=== PATIENT | female | born 1960 | race Native Hawaiian/Other Pacific Islander ===

== ENCOUNTER 2020-11-20 08:32 | Outpatient (CLI) | payer OTHER ==
[~2020-11-20] VITALS: Ht 157.5 cm; Wt 86.2 kg
== END 2020-11-20 22:00 | disposition home or self-care (01) ==
LOC: DIABINF 08:32
PROVIDERS: ATTEND Internal Medicine Endocrinology, Diabetes & Metabolism
DX: E11.65 Type 2 diabetes mellitus with hyperglycemia (principal); E66.01 Morbid (severe) obesity due to excess calories; Z68.34 Body mass index [BMI] 34.0-34.9, adult; K21.9 Gastro-esophageal reflux disease without esophagitis; I10 Essential (primary) hypertension; E78.2 Mixed hyperlipidemia; J30.2 Other seasonal allergic rhinitis; E11.40 Type 2 diabetes mellitus with diabetic neuropathy, unspecified
CPT/HCPCS: 82948; 96365; 96366; 96521; J1815; J1817

== ENCOUNTER 2020-11-21 11:51 | Outpatient (CLI) | payer OTHER ==
[~2020-11-21] VITALS: Ht 157.5 cm; Wt 86.2 kg
== END 2020-11-21 22:59 | disposition home or self-care (01) ==
LOC: DIABINF 11:51
PROVIDERS: ATTEND Internal Medicine Endocrinology, Diabetes & Metabolism
DX: E11.65 Type 2 diabetes mellitus with hyperglycemia (principal); E66.01 Morbid (severe) obesity due to excess calories; Z68.34 Body mass index [BMI] 34.0-34.9, adult; K21.9 Gastro-esophageal reflux disease without esophagitis; I10 Essential (primary) hypertension; E78.2 Mixed hyperlipidemia; J30.2 Other seasonal allergic rhinitis; E11.40 Type 2 diabetes mellitus with diabetic neuropathy, unspecified
CPT/HCPCS: 82948; 96365; 96366; 96521; J1815; J1817

== ENCOUNTER 2020-11-27 08:26 | Outpatient (CLI) | payer OTHER ==
[~2020-11-27] VITALS: Ht 157.5 cm; Wt 86.2 kg
== END 2020-11-27 22:43 | disposition home or self-care (01) ==
LOC: DIABINF 08:26
PROVIDERS: ATTEND Internal Medicine Endocrinology, Diabetes & Metabolism
DX: E11.65 Type 2 diabetes mellitus with hyperglycemia (principal); E66.01 Morbid (severe) obesity due to excess calories; Z68.34 Body mass index [BMI] 34.0-34.9, adult; K21.9 Gastro-esophageal reflux disease without esophagitis; I10 Essential (primary) hypertension; E78.2 Mixed hyperlipidemia; J30.2 Other seasonal allergic rhinitis; E11.40 Type 2 diabetes mellitus with diabetic neuropathy, unspecified
CPT/HCPCS: 82948; 96365; 96366; 96521; J1815; J1817

== ENCOUNTER 2020-11-28 13:22 | Outpatient (CLI) | payer OTHER ==
[~2020-11-28] VITALS: Ht 157.5 cm; Wt 86.2 kg
== END 2020-11-28 20:11 | disposition home or self-care (01) ==
LOC: DIABINF 13:22
PROVIDERS: ATTEND Internal Medicine Endocrinology, Diabetes & Metabolism
DX: E11.65 Type 2 diabetes mellitus with hyperglycemia (principal); E66.01 Morbid (severe) obesity due to excess calories; Z68.34 Body mass index [BMI] 34.0-34.9, adult; K21.9 Gastro-esophageal reflux disease without esophagitis; I10 Essential (primary) hypertension; E78.2 Mixed hyperlipidemia; J30.2 Other seasonal allergic rhinitis; E11.40 Type 2 diabetes mellitus with diabetic neuropathy, unspecified
CPT/HCPCS: 82948; 96365; 96366; 96521; J1815; J1817

== ENCOUNTER 2020-12-04 13:03 | Outpatient (CLI) | payer OTHER ==
[~2020-12-04] VITALS: Ht 157.5 cm; Wt 85.7 kg
== END 2020-12-04 22:49 | disposition home or self-care (01) ==
LOC: DIABINF 13:03
PROVIDERS: ATTEND Internal Medicine Endocrinology, Diabetes & Metabolism
DX: E11.65 Type 2 diabetes mellitus with hyperglycemia (principal); E66.01 Morbid (severe) obesity due to excess calories; Z68.34 Body mass index [BMI] 34.0-34.9, adult; K21.9 Gastro-esophageal reflux disease without esophagitis; I10 Essential (primary) hypertension; E78.2 Mixed hyperlipidemia; J30.2 Other seasonal allergic rhinitis; E11.40 Type 2 diabetes mellitus with diabetic neuropathy, unspecified
CPT/HCPCS: 82948; 96365; 96366; 96521; J1815; J1817

== ENCOUNTER 2020-12-05 08:47 | Outpatient (CLI) | payer OTHER ==
[~2020-12-05] VITALS: Ht 157.5 cm; Wt 85.7 kg
== END 2020-12-05 18:59 | disposition home or self-care (01) ==
LOC: DIABINF 08:47
PROVIDERS: ATTEND Internal Medicine Endocrinology, Diabetes & Metabolism
DX: E11.65 Type 2 diabetes mellitus with hyperglycemia (principal); E66.01 Morbid (severe) obesity due to excess calories; Z68.34 Body mass index [BMI] 34.0-34.9, adult; K21.9 Gastro-esophageal reflux disease without esophagitis; I10 Essential (primary) hypertension; E78.2 Mixed hyperlipidemia; J30.2 Other seasonal allergic rhinitis; E11.40 Type 2 diabetes mellitus with diabetic neuropathy, unspecified
CPT/HCPCS: 82948; 96365; 96366; 96521; J1815; J1817

== ENCOUNTER 2020-12-11 08:55 | Outpatient (CLI) | payer OTHER ==
[~2020-12-11] VITALS: Ht 157.5 cm; Wt 85.7 kg
== END 2020-12-11 11:30 | disposition home or self-care (01) ==
LOC: DIABINF 08:55
PROVIDERS: ATTEND Internal Medicine Endocrinology, Diabetes & Metabolism
DX: E11.65 Type 2 diabetes mellitus with hyperglycemia (principal); E78.2 Mixed hyperlipidemia; I10 Essential (primary) hypertension; K21.9 Gastro-esophageal reflux disease without esophagitis; E66.8 Other obesity; Z68.34 Body mass index [BMI] 34.0-34.9, adult; J01.80 Other acute sinusitis
CPT/HCPCS: 82948; 96365; 96366; 96521; J1815; J1817

== ENCOUNTER 2020-12-12 13:07 | Outpatient (CLI) | payer OTHER ==
[~2020-12-12] VITALS: Ht 157.5 cm; Wt 85.7 kg
== END 2020-12-12 16:00 | disposition home or self-care (01) ==
LOC: DIABINF 13:07
PROVIDERS: ATTEND Internal Medicine Endocrinology, Diabetes & Metabolism
DX: E11.65 Type 2 diabetes mellitus with hyperglycemia (principal); E11.40 Type 2 diabetes mellitus with diabetic neuropathy, unspecified; E78.2 Mixed hyperlipidemia; I10 Essential (primary) hypertension; K21.9 Gastro-esophageal reflux disease without esophagitis; E66.8 Other obesity; Z68.34 Body mass index [BMI] 34.0-34.9, adult; J01.80 Other acute sinusitis
CPT/HCPCS: 82948; 96365; 96366; 96521; J1815; J1817

== ENCOUNTER 2020-12-19 13:17 | Outpatient (CLI) | payer OTHER ==
[~2020-12-19] VITALS: Ht 157.5 cm; Wt 85.7 kg
== END 2020-12-19 16:00 | disposition home or self-care (01) ==
LOC: DIABINF 13:17
PROVIDERS: ATTEND Nurse Practitioner
DX: E11.65 Type 2 diabetes mellitus with hyperglycemia (principal); E11.40 Type 2 diabetes mellitus with diabetic neuropathy, unspecified; I10 Essential (primary) hypertension; E78.00 Pure hypercholesterolemia, unspecified; K21.9 Gastro-esophageal reflux disease without esophagitis; E66.8 Other obesity; Z68.34 Body mass index [BMI] 34.0-34.9, adult; J30.2 Other seasonal allergic rhinitis
CPT/HCPCS: 82948; 96365; 96366; 96521; J1815; J1817

== ENCOUNTER 2020-12-26 13:18 | Outpatient (CLI) | payer OTHER ==
[~2020-12-26] VITALS: Ht 157.5 cm; Wt 85.7 kg
== END 2020-12-26 23:00 | disposition home or self-care (01) ==
LOC: DIABINF 13:18
PROVIDERS: ATTEND Internal Medicine Endocrinology, Diabetes & Metabolism
DX: E11.65 Type 2 diabetes mellitus with hyperglycemia (principal); E66.01 Morbid (severe) obesity due to excess calories; Z68.34 Body mass index [BMI] 34.0-34.9, adult; K21.9 Gastro-esophageal reflux disease without esophagitis; I10 Essential (primary) hypertension; E78.2 Mixed hyperlipidemia; J30.2 Other seasonal allergic rhinitis; E11.40 Type 2 diabetes mellitus with diabetic neuropathy, unspecified
CPT/HCPCS: 82948; 96365; 96366; 96521; J1815; J1817

== ENCOUNTER 2021-01-01 13:16 | Outpatient (CLI) | payer OTHER ==
[~2021-01-01] VITALS: Ht 157.5 cm; Wt 85.7 kg
== END 2021-01-01 19:48 | disposition home or self-care (01) ==
LOC: DIABINF 13:16
PROVIDERS: ATTEND Nurse Practitioner
DX: E11.65 Type 2 diabetes mellitus with hyperglycemia (principal); E78.2 Mixed hyperlipidemia; E11.40 Type 2 diabetes mellitus with diabetic neuropathy, unspecified; J30.2 Other seasonal allergic rhinitis; I10 Essential (primary) hypertension
CPT/HCPCS: 82948; 96365; 96366; 96521; J1815; J1817

== ENCOUNTER 2021-01-09 13:30 | Outpatient (CLI) | payer OTHER ==
[~2021-01-09] VITALS: Ht 157.5 cm; Wt 85.7 kg
== END 2021-01-09 22:53 | disposition home or self-care (01) ==
LOC: DIABINF 13:30
PROVIDERS: ATTEND Nurse Practitioner
DX: E11.65 Type 2 diabetes mellitus with hyperglycemia (principal); E78.2 Mixed hyperlipidemia; E11.40 Type 2 diabetes mellitus with diabetic neuropathy, unspecified; J30.2 Other seasonal allergic rhinitis; I10 Essential (primary) hypertension
CPT/HCPCS: 82948; 96365; 96366; 96521; J1815; J1817

== ENCOUNTER 2021-01-15 08:14 | Outpatient (CLI) | payer OTHER ==
[~2021-01-15] VITALS: Ht 157.5 cm; Wt 85.7 kg
== END 2021-01-15 20:59 | disposition home or self-care (01) ==
LOC: DIABINF 08:14
PROVIDERS: ATTEND Nurse Practitioner
DX: E11.65 Type 2 diabetes mellitus with hyperglycemia (principal); E11.40 Type 2 diabetes mellitus with diabetic neuropathy, unspecified; J30.2 Other seasonal allergic rhinitis; I10 Essential (primary) hypertension; E78.00 Pure hypercholesterolemia, unspecified; K21.9 Gastro-esophageal reflux disease without esophagitis; E66.8 Other obesity; Z68.34 Body mass index [BMI] 34.0-34.9, adult
CPT/HCPCS: 82948; 96365; 96366; 96521; J1815; J1817

== ENCOUNTER 2021-01-23 13:35 | Outpatient (CLI) | payer OTHER ==
[~2021-01-23] VITALS: Ht 157.5 cm; Wt 85.7 kg
== END 2021-01-23 22:39 | disposition home or self-care (01) ==
LOC: DIABINF 13:35
PROVIDERS: ATTEND Nurse Practitioner
DX: E11.65 Type 2 diabetes mellitus with hyperglycemia (principal); E11.40 Type 2 diabetes mellitus with diabetic neuropathy, unspecified; I10 Essential (primary) hypertension; E78.00 Pure hypercholesterolemia, unspecified; K21.9 Gastro-esophageal reflux disease without esophagitis; E66.8 Other obesity; Z68.34 Body mass index [BMI] 34.0-34.9, adult; J30.2 Other seasonal allergic rhinitis
CPT/HCPCS: 82948; 96365; 96366; 96521; J1815; J1817

== ENCOUNTER 2021-01-30 12:50 | Outpatient (CLI) | payer OTHER ==
[~2021-01-30] VITALS: Ht 157.5 cm; Wt 85.7 kg
== END 2021-01-30 20:00 | disposition home or self-care (01) ==
LOC: DIABINF 12:50
PROVIDERS: ATTEND Nurse Practitioner
DX: E11.65 Type 2 diabetes mellitus with hyperglycemia (principal); E11.40 Type 2 diabetes mellitus with diabetic neuropathy, unspecified; I10 Essential (primary) hypertension; E78.00 Pure hypercholesterolemia, unspecified; K21.9 Gastro-esophageal reflux disease without esophagitis; E66.8 Other obesity; Z68.34 Body mass index [BMI] 34.0-34.9, adult; J30.2 Other seasonal allergic rhinitis
CPT/HCPCS: 82948; 96365; 96366; 96521; J1815; J1817

== ENCOUNTER 2021-02-06 11:28 | Outpatient (CLI) | payer OTHER ==
[~2021-02-06] VITALS: Ht 157.5 cm; Wt 85.7 kg
== END 2021-02-06 23:12 | disposition home or self-care (01) ==
LOC: DIABINF 11:28
PROVIDERS: ATTEND Nurse Practitioner
DX: E11.65 Type 2 diabetes mellitus with hyperglycemia (principal); E11.40 Type 2 diabetes mellitus with diabetic neuropathy, unspecified; I10 Essential (primary) hypertension; E78.00 Pure hypercholesterolemia, unspecified; K21.9 Gastro-esophageal reflux disease without esophagitis; E66.8 Other obesity; Z68.34 Body mass index [BMI] 34.0-34.9, adult; J30.2 Other seasonal allergic rhinitis; K59.09 Other constipation
CPT/HCPCS: 82948; 96365; 96366; 96521; J1815; J1817

== ENCOUNTER 2021-02-13 12:57 | Outpatient (CLI) | payer OTHER ==
[~2021-02-13] VITALS: Ht 157.5 cm; Wt 856.8 kg
== END 2021-02-13 19:08 | disposition home or self-care (01) ==
LOC: DIABINF 12:57
PROVIDERS: ATTEND Nurse Practitioner Family
DX: E11.65 Type 2 diabetes mellitus with hyperglycemia (principal); E11.40 Type 2 diabetes mellitus with diabetic neuropathy, unspecified; I10 Essential (primary) hypertension; E78.00 Pure hypercholesterolemia, unspecified; K21.9 Gastro-esophageal reflux disease without esophagitis; E66.8 Other obesity; Z68.34 Body mass index [BMI] 34.0-34.9, adult; J30.2 Other seasonal allergic rhinitis; K59.09 Other constipation
CPT/HCPCS: 82948; 96365; 96366; 96521; J1815; J1817

== ENCOUNTER 2021-02-20 13:35 | Outpatient (CLI) | payer OTHER | END 2021-02-20 22:04 | disposition home or self-care (01) | LOC: DIABINF 13:35 | PROVIDERS: ATTEND Nurse Practitioner | DX: E11.65 Type 2 diabetes mellitus with hyperglycemia (principal); E11.40 Type 2 diabetes mellitus with diabetic neuropathy, unspecified; I10 Essential (primary) hypertension; E78.00 Pure hypercholesterolemia, unspecified; K21.9 Gastro-esophageal reflux disease without esophagitis; E66.8 Other obesity; Z68.34 Body mass index [BMI] 34.0-34.9, adult; J30.2 Other seasonal allergic rhinitis | CPT/HCPCS: 82948; 96365; 96366; 96521; J1817 ==

== ENCOUNTER 2021-02-27 13:16 | Outpatient (CLI) | payer OTHER ==
[~2021-02-27] VITALS: Ht 157.5 cm; Wt 85.7 kg
== END 2021-02-27 19:37 | disposition home or self-care (01) ==
LOC: DIABINF 13:16
PROVIDERS: ATTEND Nurse Practitioner
DX: E11.65 Type 2 diabetes mellitus with hyperglycemia (principal); E11.40 Type 2 diabetes mellitus with diabetic neuropathy, unspecified; I10 Essential (primary) hypertension; E78.00 Pure hypercholesterolemia, unspecified; K21.9 Gastro-esophageal reflux disease without esophagitis; E66.8 Other obesity; Z68.34 Body mass index [BMI] 34.0-34.9, adult; J30.2 Other seasonal allergic rhinitis
CPT/HCPCS: 82948; 96365; 96366; 96521; J1815; J1817